=== PATIENT | female | born 1940 | race Caucasian/White ===

== ENCOUNTER 2018-05-05 08:19 | Inpatient (IN) | payer OTHER ==
[~2018-05-05] VITALS: Ht 177.8 cm; Wt 54.9 kg
[~2018-05-05 08:19] MED LIST: ACCUNEB SO1.25 MG/1 INH; CEFTIN 250 MG250 MG PO; COLACE100 MG PO; ENOXAPARIN40 MG/0.1 SUBQ; KCL PO; MELATONIN PO; NICOTINE TRANSDERM; TRINATE TABLET1 TAB PO; TYLENOL325 MG PO; VITAMIN B-1100 M1 PO
[2018-05-05 10:54] LABS: HEMATOCRIT 39.2 % (37.0-47.0); HEMOGLOBIN 13.1 gm/dL (12.0-15.0); MCHC 33.6 g/dL (28.0-37.0); MCV 89.3 fL (80.0-100.0); RBC 4.39 mil/uL (4.20-5.00); RDW 13.4 % (10.5-14.5); WBC 6.4 thou/uL (4.0-11.0)
[2018-05-05 11:07] LABS: ALBUMIN 3.4 g/dL (3.4-5.0); CALCIUM 9.4 mg/dL (8.5-10.1); CREATININE 1.6 mg/dL (0.6-1.0); POTASSIUM 3.9 mmol/L (3.5-5.1); TOTAL BILIRUBIN 0.4 mg/dL (<0.1-1.0); TOTAL PROTEIN 6.7 g/dL (6.4-8.2)
[2018-05-05 14:59] LABS: URINE BILIRUBIN NEGATIVE (Negative); URINE BLOOD NEGATIVE (Negative); URINE CLARITY CLEAR; URINE COLOR YELLOW; URINE GLUCOSE-RANDOM* NEGATIVE (Negative); URINE KETONES NEGATIVE (Negative); URINE NITRITE-REFLEX NEGATIVE (Negative); URINE PROTEIN (DIPSTICK) NEGATIVE (Negative); URINE SPECIFIC GRAVITY <= 1.005 (1.005-1.035); URINE UROBILINOGEN 0.2 E.U./dl (0.2-1.0)
[2018-05-05 15:00] LABS: URINE LEUKOCYTES-REFLEX 1+ (Negative)
[2018-05-05 15:09] LABS: BACTERIA-REFLEX 1-9 Few /HPF (None Seen); CASTS None Seen /LPF (None Seen); CRYSTALS None Seen /LPF (None Seen); SQUAMOUS 0-3 Few /LPF (0-3); URINE RBC None Seen /HPF (0-2); URINE WBC-REFLEX 0-5 Rare /HPF (0-5)
[2018-05-05 15:37] VITALS: BP 145/87
[2018-05-05 19:10] VITALS: BP 130/72
[2018-05-06 03:41] VITALS: BP 142/63
[2018-05-06 08:00] VITALS: BP 145/82
[2018-05-06 09:08] LABS: CALCIUM 9.4 mg/dL (8.5-10.1); CREATININE 1.2 mg/dL (0.6-1.0); POTASSIUM 4.1 mmol/L (3.5-5.1)
[2018-05-06 16:00] VITALS: BP 123/87
[2018-05-06 19:08] VITALS: BP 130/74
[2018-05-07 03:04] VITALS: BP 154/88
[2018-05-07] MEDS ORDERED: AMLODIPINE BESYL5 MG PO (07:28)
[2018-05-07] MEDS ORDERED: CARVEDILOL3.125 MG PO (07:28)
[2018-05-07] MEDS ORDERED: ASPIR 8181 MG PO (07:28)
[2018-05-07] MEDS ORDERED: BENTYL 10 MG CA10 M1 PO (07:28)
[2018-05-07] MEDS ORDERED: DEPAKOTE 250MG250 M1 PO (07:29)
[2018-05-07 08:00] VITALS: BP 150/83
[2018-05-07 15:30] VITALS: BP 115/93
[2018-05-07 19:18] VITALS: BP 126/63
[2018-05-08 04:41] VITALS: BP 147/81
[2018-05-08 07:35] VITALS: BP 140/84
== END 2018-05-08 11:39 | DRG 682 ==
LOC: 4W 08:19
PROVIDERS: Family Medicine
DX: N17.0 Acute kidney failure with tubular necrosis (principal); G93.40 Encephalopathy, unspecified; N39.0 Urinary tract infection, site not specified; R53.81 Other malaise; W19.XXXA Unspecified fall, initial encounter; I10 Essential (primary) hypertension; F03.90 Unspecified dementia, unspecified severity, without behavioral disturbance, psychotic disturbance, mood disturbance, and anxiety; F32.9 Major depressive disorder, single episode, unspecified; E86.0 Dehydration; K58.9 Irritable bowel syndrome, unspecified; M19.90 Unspecified osteoarthritis, unspecified site; K21.9 Gastro-esophageal reflux disease without esophagitis; B95.2 Enterococcus as the cause of diseases classified elsewhere; M79.1 Myalgia; Y93.89 Activity, other specified; Y92.89 Other specified places as the place of occurrence of the external cause; Z98.41 Cataract extraction status, right eye; Z98.42 Cataract extraction status, left eye; Y99.8 Other external cause status; Z87.891 Personal history of nicotine dependence; Z79.1 Long term (current) use of non-steroidal anti-inflammatories (NSAID)
CPT/HCPCS: 10047

== ENCOUNTER 2018-06-06 18:19 | Inpatient (IN) | payer OTHER ==
[~2018-06-06] VITALS: Ht 177.8 cm; Wt 71.5 kg
[~2018-06-06 18:19] MED LIST changes: +AMLODIPINE BESYL5 MG PO; +ASPIR 8181 MG PO; +BENTYL 10 MG CA10 M1 PO; +CARVEDILOL3.125 MG PO; +DEPAKOTE 250MG250 M1 PO
[2018-06-06 19:35] VITALS: BP 119/59
[2018-06-07 03:52] VITALS: BP 1135/75; BP 156/69
[2018-06-07 04:25] LABS: URINE BILIRUBIN NEGATIVE (Negative); URINE BLOOD NEGATIVE (Negative); URINE CLARITY CLEAR; URINE COLOR YELLOW; URINE GLUCOSE-RANDOM* NEGATIVE (Negative); URINE KETONES NEGATIVE (Negative); URINE LEUKOCYTES-REFLEX NEGATIVE (Negative); URINE NITRITE-REFLEX NEGATIVE (Negative); URINE PROTEIN (DIPSTICK) NEGATIVE (Negative); URINE SPECIFIC GRAVITY <= 1.005 (1.005-1.035); URINE UROBILINOGEN 0.2 E.U./dl (0.2-1.0)
[2018-06-07 05:11] LABS: ALBUMIN 3.2 g/dL (3.4-5.0); CALCIUM 9.8 mg/dL (8.5-10.1); CREATININE 1.3 mg/dL (0.6-1.0); POTASSIUM 3.9 mmol/L (3.5-5.1); TOTAL BILIRUBIN 0.3 mg/dL (<0.1-1.0); TOTAL PROTEIN 6.3 g/dL (6.4-8.2)
[2018-06-07 05:43] LABS: HEMATOCRIT 38.9 % (37.0-47.0); MCH 30.1 pg (26.0-34.0); MCHC 33.4 g/dL (28.0-37.0); MCV 90.1 fL (80.0-100.0); RBC 4.32 mil/uL (4.20-5.00); RDW 13.6 % (10.5-14.5); WBC 6.4 thou/uL (4.0-11.0)
[2018-06-07 07:29] VITALS: BP 149/72
[2018-06-07 15:43] VITALS: BP 136/70
[2018-06-07 20:17] VITALS: BP 125/60
[2018-06-08 00:06] LABS: GLYCOHEMOGLOBIN (HGB A1C) 5.4 % (4.8-5.6)
[2018-06-08 05:31] VITALS: BP 124/59
[2018-06-08 08:41] VITALS: BP 143/103
[2018-06-08 16:00] VITALS: BP 128/60
[2018-06-08 20:34] VITALS: BP 146/87
[2018-06-09 04:45] VITALS: BP 143/79
[2018-06-09 07:38] LABS: CREATININE 1.1 mg/dL (0.6-1.0)
[2018-06-09 07:49] VITALS: BP 158/91
[2018-06-09 15:50] VITALS: BP 143/80
[2018-06-09 19:40] VITALS: BP 160/83
[2018-06-10 04:24] VITALS: BP 155/72
[2018-06-10] MEDS ORDERED: DEPAKOTE500 MG PO (07:34)
[2018-06-10] MEDS ORDERED: MACROBID 100 M100 M2 PO (07:39)
[2018-06-10 08:00] VITALS: BP 116/86
== END 2018-06-10 15:51 | DRG 683 ==
LOC: 4W 18:19 → ENTRNSPT 06-10 15:23 → EDTRNSPTSTS 06-10 15:26 → 4W 06-10 15:51
PROVIDERS: Family Medicine
DX: N17.9 Acute kidney failure, unspecified (principal); N39.0 Urinary tract infection, site not specified; M54.5 Low back pain; F03.90 Unspecified dementia, unspecified severity, without behavioral disturbance, psychotic disturbance, mood disturbance, and anxiety; F32.9 Major depressive disorder, single episode, unspecified; K21.9 Gastro-esophageal reflux disease without esophagitis; R53.81 Other malaise; K58.0 Irritable bowel syndrome with diarrhea; I10 Essential (primary) hypertension; M47.816 Spondylosis without myelopathy or radiculopathy, lumbar region; Z96.1 Presence of intraocular lens; R26.81 Unsteadiness on feet; Z79.82 Long term (current) use of aspirin; Z79.899 Other long term (current) drug therapy; Z98.42 Cataract extraction status, left eye; Z98.41 Cataract extraction status, right eye; Z87.891 Personal history of nicotine dependence; Z91.81 History of falling; Z87.311 Personal history of (healed) other pathological fracture; Z79.2 Long term (current) use of antibiotics
CPT/HCPCS: 10047

== ENCOUNTER 2019-01-15 21:18 | Inpatient (IN) | payer OTHER ==
[~2019-01-15] VITALS: Ht 170.2 cm; Wt 67.7 kg
[~2019-01-15 21:18] MED LIST changes: +DEPAKOTE500 MG PO; +MACROBID 100 M100 M2 PO
[2019-01-15 21:19] VITALS: BP 141/66
[2019-01-15 21:57] LABS: ABSOLUTE NEUTROPHILS 9.6 thou/uL (1.4-8.2); BASOPHILS 0.5 % (0.0-2.0); EOSINOPHILS 0.1 % (0.0-3.0); HEMATOCRIT 38.3 % (37.0-47.0); HEMOGLOBIN 12.9 gm/dL (12.0-15.0); LYMPHOCYTES 14.4 % (24.0-44.0); MCH 31.7 pg (26.0-34.0); MCHC 33.8 g/dL (28.0-37.0); MCV 93.7 fL (80.0-100.0); MONOCYTES 8.9 % (1.0-8.0); PLATELET COUNT 122 thou/uL (150-400); POLYS 76.1 % (36.0-66.0); RBC 4.08 mil/uL (4.20-5.00); WBC 13.6 thou/uL (4.0-11.0)
[2019-01-15 22:09] LABS: URINE BILIRUBIN NEGATIVE (Negative); URINE BLOOD 1+ (Negative); URINE CLARITY CLEAR; URINE COLOR YELLOW; URINE GLUCOSE-RANDOM* NEGATIVE (Negative); URINE KETONES 1+ (Negative); URINE LEUKOCYTES-REFLEX TRACE (Negative); URINE PROTEIN (DIPSTICK) TRACE (Negative); URINE SPECIFIC GRAVITY 1.025 (1.005-1.035); URINE UROBILINOGEN 0.2 E.U./dl (0.2-1.0)
[2019-01-15 22:10] LABS: ANION GAP 10 mmol/L (7-16); BUN 33 mg/dL (7-18); CALCIUM 9.1 mg/dL (8.5-10.1); CHLORIDE 102 mmol/L (98-107); CO2 27 mmol/L (21-32); CREATININE 1.5 mg/dL (0.6-1.0); GLUCOSE 100 mg/dL (74-106); POTASSIUM 3.5 mmol/L (3.5-5.1); SODIUM 139 mmol/L (136-145)
[2019-01-15 22:13] LABS: TROPONIN-I <0.06 ng/mL (<0.06)
[2019-01-15 22:14] LABS: AMP/METHAMP Negative (Negative); BARBITURATES Negative (Negative); BENZODIAZEPINES Negative (Negative); COCAINE Negative (Negative); METHADONE Negative (Negative); OPIATES Negative (Negative); PCP Negative (Negative)
[2019-01-15 22:20] LABS: URINE NITRITE-REFLEX POSITIVE (Negative)
[2019-01-15 22:25] LABS: BACTERIA-REFLEX >30 Many /HPF (None Seen); CASTS None Seen /LPF (None Seen); CRYSTALS None Seen /LPF (None Seen); MUCUS 0-3 Light strn/LPF (None Seen); SQUAMOUS 0-3 Few /LPF (0-3); URINE RBC 3-10 Few /HPF (0-2); URINE WBC-REFLEX 6-15 Few /HPF (0-5)
[2019-01-16] VITALS (7 sets, daily range): BP systolic 107–163; BP diastolic 63–82
[2019-01-16] MEDS ORDERED: ZOLOFT25 MG PO (01:20)
[2019-01-16] MEDS ORDERED: VITAMIN D2000 UNIT PO (01:20)
--- NOTE | 2019-01-16 03:50 | NUR ---
PT ARRIVED FROM ED 0050. ADMISSION COMPLETE. PT ALERT TO SELF ONLY. FALL RISK PRECAUTIONS IMPLEMENTED. DR. ELIZABETH CONTACTED, ORDERS IMPLEMENTED. VSS. IV DRESSING C/D/I, NO SIGNS OF INFILTRATION. ELEVATED TEMP, WILL REEVALUATE WITH MORNING VITALS. WILL CONTINUE POC UNTIL EOS.
--- NOTE | 2019-01-16 14:22 | NUR ---
Patient admits from [facility] memory care unit with AMS. Sp with patients dtr Yazmin BARROS who reports plan to return to [facility] once stable. Sp with Cynthia MICHAEL at [facility] who reports patient with upset stomach on Sunday but not herself per staff. If to dc in next 24 hours accepting for return. If patient here over weekend Cynthia reports likely need for onsite eval on Sunday. [facility] fax [phone] for updates. [facility] paperwork in envelope for chart.
--- NOTE | 2019-01-16 17:57 | EKG ---
[facility] [place] [address] ELECTROCARDIOGRAM REPORT Name: MARIANNE BAGLEY Room #: 429-P ADM IN M.R.#: [id number] ������������������ Admission: 01/15/19 ������������������ Attend Phys: Jamal Batista MD Discharge: ������������������ Date of : 44 Report #: [id number] ����������������������������������������������������������������� [id number] THIS REPORT FOR: //name// [facility] ED Test Date: 2019-01-15 Test Time: 21:57:35 Pat Name: MARIANNE BAGLEY Department: Room: 429 Gender: F [employer]: CORTEZ : 1940 Requested By: Jason Brown Order Number: [id number] MD: Boyd Craig Measurements Intervals [place] Rate: 78 P: 66 NC: 156 QRS: -65 QRSD: 124 T: 105 QT: 401 QTc: 457 Interpretive Statements Sinus rhythm 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
--- NOTE | 2019-01-16 19:40 | NUR ---
Assessment completed.vss.Pt in and out of bed with assist today.Meds given as ordered and well tolerated.Dr Nichols here,order noted.Received call from pt's facility,updates given.Later this evening,pt was restless and agitated.Pulled piv.New one placed and Dr Batista notified.Order noted.Bed alarm in use at all times.Report off to Sakina duke.
--- NOTE | 2019-01-17 03:32 | NUR ---
Assumed care of pt at 1900. Pt alert and oriented to self only. No c/o pain. Pt restless at start of shift. Dr notified by am RN and one time dose of haldol ordered. Pt resting and calm at this moment. IVF infusing. Fall precautions in place. Will continue to monitor.
[2019-01-17 04:43] VITALS: BP 155/65
[2019-01-17 04:51] LABS: HEMATOCRIT 37.6 % (37.0-47.0); HEMOGLOBIN 12.6 gm/dL (12.0-15.0); MCH 31.5 pg (26.0-34.0); MCHC 33.5 g/dL (28.0-37.0); MCV 93.9 fL (80.0-100.0); RDW 13.8 % (10.5-14.5); WBC 6.4 thou/uL (4.0-11.0)
[2019-01-17 05:01] LABS: CALCIUM 8.9 mg/dL (8.5-10.1); CREATININE 1.1 mg/dL (0.6-1.0)
[2019-01-17 07:48] VITALS: BP 155/66
--- NOTE | 2019-01-17 14:01 | NUR ---
ASSESMENT COMPLETED. VSS. PLEASANTLY CONFUSED. IMPULSIVE. PT DC'D IV OUT. PT RESTING IN BED APEPARS COMFORTABLE IN BED. AMBULATED IN HALLWAY- STAND BY ASSIST. WILL CONT. TO MONITOR.
[2019-01-17 16:35] VITALS: BP 153/59
--- NOTE | 2019-01-17 17:24 | NUR ---
CASE DISCUSSED WITH DR ELIZABETH EARLIER TODAY AND HE SAYS PT WILL BE READY TO RETURN TO HER FACILITY TOMORROW. HE WILL PLAN TO TRANSPORT HER TOMORROW LATE MORNING AFTER HIS ROUNDS. CHART COPY REQUESTED. S/W LYNSE[facility] AT [facility] TO ALERT OF THIS. ON SAT. CALL REPORT TO BEENA [phone] & FAX ORDERS TO [phone].
[2019-01-17 20:45] VITALS: BP 156/59
[2019-01-18 04:05] VITALS: BP 148/70
[2019-01-18 07:30] VITALS: BP 155/78
--- NOTE | 2019-01-18 08:35 | NUR ---
ASSUMED PT CARE 1899. PT ALERT TO SELF. REASSESSMENT COMPLETED. FALL RISK PRECAUTIONS IN PLACE. SITTER IN PT ROOM FOR A COUPLE HOURS AT BEGINIGN OF SHIFT, REMOVED AFTER PT SLEEPING. PT IMPULSIVE, FOLLOWS COMMANDS. NO IV ACCESS. PT DENIES PAIN. PT SLEPT MOST OF THE EVENING. REPORT GIVEN TO DAY SHIFT NURSE.
[2019-01-18] MEDS ORDERED: CEFDINIR300 MG PO (09:22)
[2019-01-18 09:39] VITALS: BP 155/78
== END 2019-01-18 10:23 | disposition home or self-care (01) | DRG 682 ==
LOC: ER 21:18 → EROBS 22:53 → 4E 22:53
PROVIDERS: Emergency Medicine; ADMIT Family Medicine
DX: N17.9 Acute kidney failure, unspecified (principal); G92 Toxic encephalopathy; N39.0 Urinary tract infection, site not specified; I10 Essential (primary) hypertension; K21.9 Gastro-esophageal reflux disease without esophagitis; K58.9 Irritable bowel syndrome, unspecified; F32.9 Major depressive disorder, single episode, unspecified; F03.90 Unspecified dementia, unspecified severity, without behavioral disturbance, psychotic disturbance, mood disturbance, and anxiety; Z98.42 Cataract extraction status, left eye; Z98.41 Cataract extraction status, right eye; Z87.81 Personal history of (healed) traumatic fracture; Z87.891 Personal history of nicotine dependence; Z79.82 Long term (current) use of aspirin; Z79.899 Other long term (current) drug therapy
CPT/HCPCS: 10084

== ENCOUNTER 2019-03-02 08:11 | Emergency (ER) | payer OTHER ==
[~2019-03-02] VITALS: Ht 162.6 cm; Wt 65.8 kg
[~2019-03-02 08:11] MED LIST changes: +CEFDINIR300 MG PO; +VITAMIN D2000 UNIT PO; +ZOLOFT25 MG PO
[2019-03-02 08:12] VITALS: BP 172/84
[2019-03-02] MEDS ORDERED: TRAMADOL 50 MG50 MG PO (09:06)
[2019-03-02] MEDS ORDERED: MELATONIN5 M1 PO (09:27)
[2019-03-02] MEDS ORDERED: TRAZODONE HCL50 MG PO (09:28)
[2019-03-02 10:13] LABS: URINE BILIRUBIN NEGATIVE (Negative); URINE BLOOD NEGATIVE (Negative); URINE CLARITY CLEAR; URINE COLOR YELLOW; URINE GLUCOSE-RANDOM* NEGATIVE (Negative); URINE KETONES NEGATIVE (Negative); URINE LEUKOCYTES-REFLEX NEGATIVE (Negative); URINE NITRITE-REFLEX NEGATIVE (Negative); URINE PROTEIN (DIPSTICK) NEGATIVE (Negative); URINE UROBILINOGEN 0.2 E.U./dl (0.2-1.0)
== END 2019-03-02 10:19 | disposition home or self-care (01) ==
LOC: ER 08:11
PROVIDERS: Emergency Medicine
DX: S52.502A Unspecified fracture of the lower end of left radius, initial encounter for closed fracture (principal); F03.90 Unspecified dementia, unspecified severity, without behavioral disturbance, psychotic disturbance, mood disturbance, and anxiety; I10 Essential (primary) hypertension; K21.9 Gastro-esophageal reflux disease without esophagitis; M19.90 Unspecified osteoarthritis, unspecified site; Z87.891 Personal history of nicotine dependence; Z79.899 Other long term (current) drug therapy; W07.XXXA Fall from chair, initial encounter; Y93.89 Activity, other specified; Y92.89 Other specified places as the place of occurrence of the external cause; Y99.8 Other external cause status